=== PATIENT | male | born 1965 | race Caucasian/White ===

== ENCOUNTER 2024-12-30 09:59 | Outpatient (CLI) | payer OTHER, SELFPAY ==
--- NOTE | ~2024-12-30 | CT_ITS ---
CT Scan of the Chest without Contrast: Clinical Indication: Lung cancer screening, nicotine dependence Technique: Contiguous sections were acquired throughout the chest without intravenous contrast. Dose reduction technique was used on this scan by utilizing automated exposure control and iterative recon struction technique. The dose-length product (DLP) was 71.87 mGy-cm. Findings: There is no evidence of any significant mediastinal, hilar or axillary lymphadenopathy. The mediastin al soft tissues appear normal. There is no evidence of pleural or pericardial effusion. There is biapical scarring. There is chronic appearing left upper lobe atelectasis and volume loss wi th bronchiectatic change. 3 mm nodule present in the anterior left midlung (axial image 52). Images through the upper abdomen reveal no abnormalities. Impression: Lung RADS 2: Benign appearance. [address] advised. Chronic appearing left upper lobe atelectasis and volume loss with left upper lobe bronchiectasis. Reviewed, dictated and finalized at [facility]. Impression: Lung RADS 2: Benign appearance. [address] advised. Chronic appearing left upper lobe atelectasis and volume loss with left upper l obe bronchiectasis.
--- OUTSIDE RECORDS SUMMARY | 2024-12-30 11:04 | XMS_ITS | Clinical Summary ---
Author Organization [facility] Address [address] [place] [id number] Care Team Providers Care Pepper Cutter Name Role Phone Ceferino Vasquez MD Primary Care Provider [phone] Allergies No known active allergies Medications lisinopril (PRINIVIL) 20 MG tablet Take 1 tablet (20 mg total) by mouth daily. Active amoxicillin (AMOXIL) 875 MG tablet Take 1 tablet (875 mg total) by mouth 2 (two) times daily. 05/20/2024 Active Social History Tobacco Use Types Packs/Day Years Used Date Smoking Tobacco: Every Day Cigarettes Smokeless Tobacco: Never Alcohol Use Standard Drinks/Week Comments Yes 23.3 (1 standard drink = 0.6 oz pure alcohol) 3 beers yesterday 06/15/24 Sex and Gender Information Value Date Recorded Sex Assigned at Not on file Legal Sex Male 9:03 AM CDT Gender Identity Not on file Sexual Orientation Not on file Last Filed Vital Signs Vital Sign Reading Time Taken Comments Blood Pressure 169/73 06/16/2024 1:13 PM CDT Pulse 93 06/16/2024 2:29 PM CDT Temperature 36.5 C (97.7 F) 06/16/2024 1:13 PM CDT Respiratory Rate 20 06/16/2024 2:29 PM CDT Oxygen Saturation 98% 06/16/2024 2:29 PM CDT Inhaled Oxygen Concentration - - Weight 63.5 kg (140 lb) 06/16/2024 1:13 PM CDT Height 180.3 cm (5' 11 ) 06/16/2024 1:13 PM CDT Body Mass Index 19.53 06/16/2024 1:13 PM CDT Plan of Treatment Health Maintenance Due Date Last Done Comments Colorectal Cancer Screening Colonoscopy (10 Years) 1966 Annual Physical 1969 Pneumococcal Vaccine: Pediat rics (0 to 5 Years) and At-Risk Patients (6 to 64 Years) (1 of 2 - PCV) 1972 Hepatitis C 1984 DTaP, Tdap and Td Vaccines ( 1 - Tdap) 1985 Hepatitis B Vaccines (1 of 3 - 19+ 3-dose series) 1985 Zoster Vaccines (1 of 2) 2016 COVID-19 Vaccine (1 - 2023-2 5 season) 2024 Meningococcal B Vaccine Aged Out No l onger eligible based on patient's age to complete this topic Meningococcal Vaccine Aged Out No kelechi asuncion eligible based on patient's age to complete this topic RSV Immunizations Under 20 Months Aged Out No longer eligible based on patient's age to complete this topic Medical Devices Implanted Type Area Reliability Technicians Device Identifier Shelf Expiration Date Model / Serial / Lot Iol Te [id number] - [id number] Implanted:Qty: 1 on 06/16/2024 by Ryan Ramirez MD at [facility] Lens Left: Eye TE - SURGICAL DIV [id number] 08/22/2027 [id number] / [id number] / Insurance Care Teams Pepper Cutter Relationship Specialty Start Date End Date Ceferino Vasquez MD [address] [place] [address] PCP - General FAMILY PRACTICE 06/13/24
--- OUTSIDE RECORDS SUMMARY | 2024-12-30 11:04 | XMS_ITS | Clinical Summary ---
Author Organization [facility] Address [address] [place] [address] Care Team Providers Care Chute Greaser Name Role Phone Unavailable Primary Care Provider Unavailabl e Encounters Date Type Department Care Team Description 12/03/2024 External Device Data STL ABSTRACTION Provider, Abstract 12/02/2024 External Device Data STL ABSTRACTION Provider, Abstract 11/29/2024 External Device Data STL ABSTRACTION Provider, Abstract 11/28/2024 External Device Data STL ABSTRACTION Provider, Abstract 11/18/2024 External Device Data STL ABSTRACTION Provider, Abstract 10/28/2024 External Device Data STL ABSTRACTION Provider, Abstract 10/16/2024 External Device Data STL ABSTRACTION Provider, Abstract from Last 3 Months Social History Tobacco Use Types Packs/Day Years Used Date Smoking Tobacco: Never Assessed Sex and Gender Information Value Date Recorded Sex Assigned at Not on file Legal Sex Male 9:26 PM CDT Gender Identity Not on file Sexual Orientation Not on file Plan of Treatment Health Maintenance Due Date Last Done Comments DTAP/TDAP/TD VACCINES (1 - Tdap) 1985 HEPATITIS B VACCINES (1 of 3 - 19+ 3-dose series) 1985 COLORECTAL SCREENING 2011 Colorectal Cancer Screening 2011 FIT-DNA Q 3 years 2011 FIT/FOBT Q 1 year 2011 Flex Sig/CT Colonography Q 5 years 2011 ZOSTER VACCINE (1 of 2) 2016 INFLUENZA VACCINE (#1) 2024 PNEUMOCOCCAL VACCINE 0-49 YEARS Aged Out No longer eligible based on patient's age to complete this topic Insurance [employer]
== END 2024-12-30 10:00 | disposition home or self-care (01) ==
PROVIDERS: PCP Registered Nurse; Visit Provider Registered Nurse
DX: Z12.2 Encounter for screening for malignant neoplasm of respiratory organs (principal); Z87.891 Personal history of nicotine dependence; J98.11 Atelectasis; J84.9 Interstitial pulmonary disease, unspecified; J47.9 Bronchiectasis, uncomplicated
CPT/HCPCS: 71271

== ENCOUNTER 2025-06-03 10:16 | Outpatient (CLI) | payer OTHER, SELFPAY ==
--- NOTE | ~2025-06-03 | US_ITS ---
EXAMINATION: US thyroid DATE: 06/03/2025 11:07 INDICATION: Thyroid nodule. TECHNIQUE: Multiple ultrasound images of the thyroid were obtained. COMPARISON: Chest CT 12/30/2024 FINDINGS: The right thyroid lobe measures 4.3 x 1.7 x 1.4 cm. The left thyroid lobe measures 5.0 x 1.4 x 1.3 cm. In the left thyroid lobe, there is a 6 mm predominantly solid, isoechoic, wider than tall nodule with ill-defined margin without echogenic foci (TI-RADS TR3). IMPRESSION: 1. Small thyroid nodule, likely not clinically significant. No follow-up is needed. Reviewed, dictated and finalized at location E. IMPRESSION: 1. Small thyroid nodule, likely not clinically significant. No follow-up is nee ded.
--- OUTSIDE RECORDS SUMMARY | 2025-06-03 11:07 | XMS_ITS | Clinical Summary ---
Author Organization [facility] Address [address] [place] [address] Care Team Providers Care Supervisor Multifocal Lens Name Role Phone Unavailable Primary Care Provider Unavailabl e Social History Tobacco Use Types Packs/Day Years [...] (1 of 3 - 19+ 3-dose series) 05/26 COLORECTAL SCREENING 2011 Colorectal Cancer Screening 2011 FIT-DNA Q 3 years 2011 FIT/FOBT Q 1 year 2011 Flex Sig/CT Colonography Q 5 years 2011 ZOSTER VACCINE (1 of 2) 2016 INFLUENZA VACCINE (#1) 2025 Insurance [employer]
--- OUTSIDE RECORDS SUMMARY | 2025-06-03 11:07 | XMS_ITS | Clinical Summary ---
Author Organization [facility] Address [address] [place] [address] Care Team Providers Care Freight Loader Name Role Phone Ceferino Vasquez MD Primary Care Provider [phone] Allergies No known active allergies Medications lisinopril [...] 1:13 PM CDT Height 180.3 cm (5' 11) 06/16/2024 1:13 PM CDT Body Mass Index 19.53 06/16/2024 1:13 PM CDT Plan of Treatment Health Maintenance Due Date Last Done Comments Colorectal Cancer Screening Colonoscopy (10 Years) 1966 Annual Physical 1969 Hepatitis C 1984 DTaP, Tdap and Td Vaccines ( 1 - Tdap) 1985 Hepatitis B Vaccines (1 of 3 - 19+ 3-dose series) 1985 Pneumococcal Vaccine: 50+ Ye ars (1 of 2 - PCV) 1985 Zoster Vaccines (1 of 2) 2016 COVID-19 Vaccine (1 - 2023-2 5 season) 2025 Meningococcal B Vaccine Aged Out No l onger eligible based on patient's age to complete this topic Meningococcal Vaccine Aged Out No kelechi asuncion eligible based on patient's age to complete this topic RSV Immunizations Under 20 Months Aged Out No longer eligible based on patient's age to complete this topic Medical Devices Implanted Type Area Automobile Dealer Device Identifier Shelf Expiration Date Model / Serial / Lot Iol Te [id number] - [id number] Implanted:Qty: 1 on 06/16/2024 by Ryan Ramirez MD at [facility] Lens Left: Eye TE - SURGICAL DIV [id number] 08/22/2027 CCA0T0 / [id number] / [place] [address] [place] [address] Care Teams Freight Loader Relationship Specialty Start Date End Date Ceferino Vasquez MD [address] [address] PCP - General FAMILY PRACTICE 06/13/24
== END 2025-06-03 10:17 | disposition home or self-care (01) ==
PROVIDERS: PCP Registered Nurse; Visit Provider Nurse Practitioner Family
DX: R22.9 Localized swelling, mass and lump, unspecified (principal)
CPT/HCPCS: 76536

== ENCOUNTER 2025-07-25 15:13 | Observation (INO) | payer OTHER, SELFPAY ==
[2025-07-25] VITALS (17 sets, daily range): BP systolic 79–118; BP diastolic 40–92; PULSE 97–136; RESP 16–28; TEMP 36.4–37.1; O2SAT 95–100; BMI 18.1
--- NOTE | ~2025-07-25 | XR_ITS ---
EXAMINATION: XR chest 1V portable COMPARISON: No comparisons available. HISTORY: vomiting FINDINGS: Nonspecific relatively increased lucency in the left lung compared to the right etiology unclear otherwise the lungs are clear. No pneumothorax. Heart is normal size. Mediastinal and hilar contours are within normal limits. Bony thorax no acute abnormality. Miscellaneous: None Impression: No acute cardiopulmonary abnormality. Reviewed, dictated and finalized at location P. Impression: No acute cardiopulmonary abnormality.
--- NOTE | ~2025-07-25 | CT_ITS ---
Dangelo Mason Mora EXAMINATION: CT abdomen pelvis w con COMPARISON: None HISTORY: right sided AP TECHNIQUE: Axial images were obtained through the abdomen, pelvis post administration of IV contrast. Oral contrast was also administered. Coronal reconstruction images were obtained from the axial views. CT scan performed using dose optimization techniques including the following automated exposure control; adjustment of mA and/or kV; use of iterative reconstruction technique. Automatic exposure control was used to reduce radiation dose. Permanent radiation dose record is archived to PACS. FINDINGS: CT abdomen: LUNG BASES: The lung bases are clear. The visualized portions of the heart and pericardium are unremarkable. LIVER: Portal vein patent. No intrahepatic biliary duct dilatation. SPLEEN: Unremarkable. KIDNEYS: Right Kidney: Unremarkable. No calculi. No hydronephrosis. Left Kidney: Unremarkable. No calculi. No hydronephrosis ADRENAL GLANDS: Unremarkable. PANCREAS: Unremarkable. GALLBLADDER/BILIARY: Cholelithiasis. STOMACH AND ESOPHAGUS: There is thickening of the esophagus which may represent esophagitis. Nonspecific gastric distention. BOWEL/MESENTERY: Nonspecific fluid-filled loops of large bowel. There is mild mucosal hyperemia noted of the large bowel with mild thickening of the large bowel noted most marked involving the transverse and descending colon, there is no perforation or abscess. Appendix normal. Mesentery normal. No thickening or dilated loops of small bowel. ADENOPATHY/RETROPERITONEUM: No lymphadenopathy. AORTA/VASCULATURE: Normal caliber aorta. FREE FLUID OR FREE AIR: No free fluid.. CT pelvis: SOLID ORGANS/REPRODUCTIVE: Unremarkable. BLADDER: Circumferential thickening of the bladder wall noted. OSSEOUS STRUCTURES: No acute osseous abnormality.No suspicious lesions. OVERLYING SOFT TISSUES: Unremarkable. IMPRESSION: Mild colitis probably infectious in nature. No perforation or abscess. Reviewed, dictated and finalized at location P.
[2025-07-25 15:37] LABS: Hematocrit 40.5 % (42.0-52.0); Hemoglobin 13.3 g/dL (14.0-18.0); Immature Granulocyte Percent A 0.5 % (0-0.5); Lymphocytes Absolute Auto 3.64 K/mm3 (0.9-3.2); Mean Corpuscular HGB Conc 32.8 g/dl (32-36); Mean Corpuscular Hemoglobin 33.1 pg (26-34); Mean Corpuscular Volume 100.7 fl (80-100); Nucleated Red Blood Cells Absolute Auto 0.000 K/mm3 (0.0-0.012); Nucleated Red Blood Cells Perc 0.0 % (0.0-0.2); Platelet Count Result 375 k/mm3 (150-375); Red Blood Count 4.02 M/mm3 (4.6-6.20); White Blood Count 19.9 K/mm3 (4.5-10.0)
[2025-07-25 15:51] LABS: Alanine Aminotransferase 25 U/L (6-50); Albumin Level 4.6 g/dL (3.5-5.1); Alkaline Phosphatase 56 U/L (38-126); Anion Gap 19 mmol/L (4-12); Aspartate Amino Transferase 27 U/L (17-59); Bilirubin,Total 0.8 mg/dL (0.2-1.3); Blood Urea Nitrogen 71 mg/dL (9-20); Calcium 9.9 mg/dL (8.4-10.2); Carbon Dioxide 23 mmol/L (22-30); Chloride 97 mmol/L (98-107); Estimated CRCL calculation 45 ml/min; Estimated Glomerular Filt Rate 54; Glucose 167 mg/dL (65-110); Lipase 63 U/L (23-300); Potassium 3.8 mmol/L (3.4-5.0); Sodium 139 mmol/L (137-145); Total Protein 7.5 g/dL (6.3-8.2)
[2025-07-25] MEDS: SODIUM CHLORIDE 0.9% IV 1,000 ML 999 ML IV CONT (16:58)
[2025-07-25] MEDS: SODIUM CHLORIDE 0.9% IV 800 ML 999 ML IV CONT (16:59)
--- NOTE | 2025-07-25 17:33 | ED.GENADULT ---
HPI - General Adult General Chief complaint: Weakness Stated complaint: weakness Time Seen by Provider: 07/25/25 16:32 History of Present Illness HPI narrative: Patient is a 60-year-old male who presents ER with weakness. [facility]. Afterwards he started vomiting black and having black diarrhea. He is not on blood thinning medication. He has not been taking any anti-inflammatory medications. He does have a some abdominal pain and cramping on the right side. Patient has not had any syncope. Denies excessive hemorrhage from extraction. He has been on Augmentin which his PCP prescribed. Related Data Allergies Allergy/AdvReac Type Severity Reaction Status Date / Time No Known Allergies Allergy Verified 07/25/25 16:51 Review of Systems Review of Systems: All systems reviewed & are unremarkable except as noted in HPI and below Constitutional: Constitutional: Reports no additional constitutional complaints ENT: Reports system reviewed and no additional complaints, except as documented Cardiovascular: Cardiovascular: Reports no additional cardiovascular complaints Gastrointestinal: Gastrointestinal: Reports no additional gastrointestinal complaints [facility] Past Medical History Medical History (Updated 07/25/25 @ 19:14 by Micky Turcios MD) Hypertension Exam Narrative: GENERAL: Ill-appearing, well-nourished, and in no acute distress. HEAD: Normocephalic, atraumatic. ENT: Mucous membranes moist. Poor dentition NECK: Supple. CHEST: Clear to auscultation. No respiratory distress. HEART: Tachycardic regular. Normal peripheral pulses. ABDOMEN: Soft, tender palpation right upper and lower quadrant, nondistended. EXTREMITIES: Normal range of motion. No edema. SKIN: Cool, dry, mottled. NEURO: Alert and oriented x3. PSYCH: Normal mood and affect. Course Course Emergency Course: 183: Patient has received 2 L IV fluid and blood pressure is 94/62 with a heart rate of 118. I discussed his lab results and imaging results with him. He is going to be receiving Zosyn IV an additional L of fluid. We can now see some of his veins in the extremities which he cannot see earlier. He still has some mottled perfusion. I have discussed at length central line placement with both him and his brother. The patient does not wish to have a central line. He does not want to lay on his back for the procedure and understands all the steps required to gain successful central venous access does not feel like he can fully participate without a complication occurring. He would like to try supportive care with peripheral IV fluid and antibiotics. He is being started on a Protonix drip. 1857: Dr. Ojeda consulted. Trend hg, agrees with protonix. 1912: Accepted by Dr. Andrews Vital Signs Vital signs: Vital Signs Temperature 98.2 F 07/25/25 15:15 Pulse Rate 105 H 07/25/25 15:15 Respiratory Rate 18 07/25/25 15:15 Blood Pressure 118/92 H 07/25/25 15:15 Pulse Oximetry 98 07/25/25 15:15 Oxygen Delivery Room Air 07/25/25 15:15 Temperature 98.7 F 07/25/25 18:46 Pulse Rate 114 H 07/25/25 18:46 Respiratory Rate 17 07/25/25 18:46 Blood Pressure 96/49 L 07/25/25 18:46 Pulse Oximetry 98 07/25/25 18:46 Oxygen Delivery Room Air 07/25/25 15:15 Medical Decision Making Differential Diagnosis Differential Diagnosis: Upper GI bleed, lower GI bleed, sepsis, perforated viscus Vital Signs Vital Signs: Vital Signs Temperature 98.2 F 07/25/25 15:15 Pulse Rate 105 H 07/25/25 15:15 Respiratory Rate 18 07/25/25 15:15 Blood Pressure 118/92 H 07/25/25 15:15 Pulse Oximetry 98 07/25/25 15:15 Oxygen Delivery Room Air 07/25/25 15:15 Temperature 98.7 F 07/25/25 18:46 Pulse Rate 114 H 07/25/25 18:46 Respiratory Rate 17 07/25/25 18:46 Blood Pressure 96/49 L 07/25/25 18:46 Pulse Oximetry 98 07/25/25 18:46 Oxygen Delivery Room Air 07/25/25 15:15 Lab Data 07/25/25 15:31 07/25/25 15:31 Labs: Lab Results 07/25/25 07/25/25 07/25/25 Range/Units 15:31 17:08 18:21 WBC 19.9 H (4.5-10.0) K/mm3 RBC 4.02 L (4.6-6.20) M/mm3 Hgb 13.3 L (14.0-18.0) g/dL Hct 40.5 L (42.0-52.0) % MCV 100.7 H (80-100) fl MCH 33.1 (26-34) pg MCHC 32.8 (32-36) g/dl RDW 13.5 (11.5-14.5) % Plt Count 375 (150-375) k/mm3 MPV 8.7 (7.4-10.4) fl Immature Gran % (Auto) 0.5 (0-0.5) % Neut % (Auto) 72.3 (45.5-73.1) % Lymph % (Auto) 18.3 (18.3-44.2) % Calloway % (Auto) 8.6 H (2.6-8.5) % Eos % (Auto) 0.1 (0-4.4) % Baso % (Auto) 0.2 (0.2-1.2) % Lymph # (Auto) 3.64 H (0.9-3.2) K/mm3 Calloway # (Auto) 1.7 H (0.1-0.6) K/mm3 Eos # (Auto) 0.0 (0-0.3) K/mm3 Baso # (Auto) 0.0 (0.0-0.1) K/mm3 Abs Immat Gran (auto) 0.09 H (0.00-0.031) K/mm3 Absolute Neuts (auto) 14.4 H (1.3-6.7) K/mm3 Absolute Nucleated RBC 0.000 (0.0-0.012) K/mm3 Nucleated RBC % 0.0 (0.0-0.2) % PT 15.3 H (11.1-14.7) Seconds INR 1.2 APTT 22.6 (22.3-36.8) Seconds Sodium 139 (137-145) mmol/L Potassium 3.8 (3.4-5.0) mmol/L Chloride 97 L (98-107) mmol/L Carbon Dioxide 23 (22-30) mmol/L Anion Gap 19 H (4-12) mmol/L BUN 71 H (9-20) mg/dL Creatinine 1.35 H (0.7-1.3) mg/dL Estim Creat Clear Calc 45 ml/min Estimated GFR 54 L (59 - ) Glucose 167 H (65-110) mg/dL Lactic Acid 5.3 H* (0.7-2.0) mmol/L Calcium 9.9 (8.4-10.2) mg/dL Total Bilirubin 0.8 (0.2-1.3) mg/dL AST 27 (17-59) U/L ALT 25 (6-50) U/L Alkaline Phosphatase 56 (38-126) U/L C-Reactive Protein 0.7 (<1.0) mg/dL Total Protein 7.5 (6.3-8.2) g/dL Albumin 4.6 (3.5-5.1) g/dL Lipase 63 (23-300) U/L Blood Type A Positive Antibody Screen Negative Critical Care Time Critical Care Time Critical Care Time: Yes Total Critical Care Time: 35 Discharge Plan Discharge Clinical Impression: Colitis, Acute upper GI bleed, Sepsis Patient Disposition: Still a Patient Condition: Serious Patient Language: Greenlandic Follow-up/Referrals: PHYSICIAN NOT ON STAFF,NONSTAFF [Primary Care Provider]
--- OUTSIDE RECORDS SUMMARY | 2025-07-25 18:02 | XMS_ITS | Clinical Summary ---
Author Organization [facility] Address [address] [place] [address] Care Team Providers Care Health Physics Technician Name Role Phone Ceferino Vasquez MD Primary Care Provider [phone] Allergies No known active allergies Medications lisinopril [...] Td Vaccines ( 1 - Tdap) 1985 Pneumococcal Vaccine: 50+ Ye ars (1 of 2 - PCV) 1985 Zoster Vaccines (1 of 2) 2016 COVID-19 Vaccine (1 - 2024-2 6 season) 2025 Influenza Adult (#1) 2025 Hepatitis A Vaccines Aged Out No long er eligible based on patient's age to complete this topic Meningococcal B Vaccine Aged Out No l onger eligible based on patient's age to complete this topic Meningococcal Vaccine Aged Out No kelechi asunicon eligible based on patient's age to complete this topic RSV Immunizations Under 20 Months Aged Out No longer eligible based on patient's age to complete this topic Medical Devices Implanted Type Area Psychiatric Social Worker Supervisor Device Identifier Shelf Expiration Date Model / Serial / Lot Iol Te [id number] - [id number] Implanted:Qty: 1 on 06/16/2024 by Ryan Ramirez MD at [facility] Lens Left: Eye TE - SURGICAL DIV [id number] 08/22/2027 [id number] / [id number] / Insurance Care Teams Health Physics Technician Relationship Specialty Start Date End Date Ceferino Vasquez MD [address] [address] PCP - General FAMILY PRACTICE 06/13/24
--- OUTSIDE RECORDS SUMMARY | 2025-07-25 18:02 | XMS_ITS | Clinical Summary ---
Author Organization [facility] Address [address] [place] [address] Care Team Providers Care Security Assurance Analyst Name Role Phone Unavailable Primary Care Provider [...]
[2025-07-25] MEDS: PANTOPRAZOLE SODIUM IV 40 MG VIAL 80 MG IV PUSH (18:42)
[2025-07-25] MEDS: PIPERACILLIN/TAZOBACTAM SOD 3.375 GM in SODIUM CHLORIDE 0.9% IV 50 ML 100 ML IVPB (18:42)
[2025-07-25] MEDS: LACTATED RINGERS 1,000 ML 999 ML IV CONT (18:43)
[2025-07-25] MEDS: PANTOPRAZOLE SODIUM IV 80 MG in SODIUM CHLORIDE 0.9% IV 500 ML 50 MG IV CONT (18:43)
[2025-07-25 18:44] LABS: CRP 0.7 mg/dL (<1.0)
[2025-07-25 18:57] LABS: INR 1.2; Prothrombin Time 15.3 Seconds (11.1-14.7)
[2025-07-25 18:58] LABS: Partial Thromboplastin Time 22.6 Seconds (22.3-36.8)
--- NOTE | 2025-07-25 19:23 | PC.NURSE ---
Report received from JACI Nino and JACI Gastelum. Assumed care of patient at this time.
[2025-07-25] MEDS: VANCOMYCIN 1,500 MG/NS 500 ML 1,500 MG/500 ML BAG 250 MG IVPB (19:52)
--- NOTE | 2025-07-25 19:57 | PC.NURSE ---
Patient used bathroom with standby assist. UA sent to lab.
--- NOTE | 2025-07-25 20:23 | PM.IMHP ---
H&P: HPI History of Present Illness Date/Time: 07/25/25 20:23 Chief Complaint: dark vomitus and diarrhea Narrative: History is taken in collaboration with the patient's brother. Patient has mental developmental delay, does not work, care for by his brother who he lives with. Patient has a history of hypertension, tobacco use disorder, alcohol use disorder, hypertension, marijuana use disorder. Patient has a history of chronic dental infections and rotting teeth. He has had multiple teeth pulled, last visit to the dentist was on 07/23/2025, at multiple teeth in the front upper row taken out, reported there were infected. Patient reports he swallows the infectious material. He drank 10 beers a day until he moved in with his brother 1 year ago and they have since limit him to 2 beers a day. After the dental procedure the patient began to have multiple episodes of black vomitus as well as 3-4 dark stools per day. He has appeared very weak, no oral intake. Reportedly went to his PCP on 07/24/2025 however there was no apparent treatment. Patient may be takes Aleve as well. Drinks 5 cups of coffee a day. Per report from ER physician patient initially in septic/hypovolemic shock as his blood pressure was 82/57 with a heart rate 116. His skin had a mottled appearance. Lactic acid 5.3. Serum creatinine 1.35 with BUN 71, patient and brother denies any known prior history of kidney disease. INR 1.2. White count 36036, hemoglobin 13.3. Blood cultures x2 obtained. Abdomen pelvis CT with contrast demonstrating thickening of esophagus, nonspecific gastric distention, nonspecific fluid-filled loops of large bowel mostly involving the transverse and descending colon, no perforation or abscess. The patient was given vancomycin, Zosyn 3.375 g x 1, 30 cc per kg sodium chloride bolus. Blood pressure improved to 114/64, heart rate downtrending to 104, his mottled appearance resolved. Patient reported feeling much better. Gastroenterology Dr. Ojeda was consulted. Administer Protonix 80 mg IV x1, started on Protonix 8 mg per hour infusion. Started on lactated Ringer's at 125 cc/hour. During the ER course, the patient adamantly refused central line placement for vasopressors. I discussed with the patient again and he once again refused. He reports he has not been able to lie on his back for many years. He also refuses to stop smoking, decrease caffeine intake, decreased marijuana, decrease alcohol intake. Discussion held with his brother in the room, brother reports the patient will be unable to be convinced. Discussed risks versus benefits. Review of Systems Review of Systems: All systems reviewed & are unremarkable except as noted in HPI and below (Subjective) [facility] Past Medical History Medical History (Updated 07/25/25 @ 20:41 by Jeaneth Andrews MD) Acute upper GI bleed Alcohol use disorder Tobacco use disorder Hypertension Meds Home Medications and Allergies Allergies Allergy/AdvReac Type Severity Reaction Status Date / Time No Known Allergies Allergy Verified 07/25/25 16:51 Vital Signs Vital Signs - 24 hr 07/25/25 15:15 07/25/25 16:17 07/25/25 16:31 Temperature 98.2 F Pulse Rate 105 H Respiratory Rate 18 Blood Pressure 118/92 H 79/40 L 86/49 L Pulse Oximetry 98 Oxygen Delivery Room Air 07/25/25 16:49 07/25/25 16:51 07/25/25 18:10 Temperature Pulse Rate 117 H 136 H 123 H Respiratory Rate 17 28 H Blood Pressure 91/46 L 92/47 L Pulse Oximetry 96 99 Oxygen Delivery 07/25/25 18:16 07/25/25 18:32 07/25/25 18:46 Temperature 98.7 F Pulse Rate 116 H 119 H 114 H Respiratory Rate 16 20 17 Blood Pressure 82/57 L 94/62 L 96/49 L Pulse Oximetry 97 98 98 Oxygen Delivery 07/25/25 19:40 Temperature 97.6 F Pulse Rate 115 H Respiratory Rate 17 Blood Pressure 94/64 L Pulse Oximetry 97 Oxygen Delivery Exam Const: General: comfortable and no acute distress Other: A&O x4 HENMT: Other: Rotting teeth, no active purulence, no tenderness to palpation. No lymphadenopathy appreciated Eyes: Pupils: Equal, round and reactive pupils present Neck: Neck: supple Resp: Effort & Inspection: normal respiratory effort Auscultation: clear to auscultation bilaterally Cardio: Rate: regular rate Rhythm: regular rhythm Heart sounds: no murmurs GI: Inspection: non-distended GI Palp: Yes Soft to palpation and No Tenderness to palpation present (GI) Auscultation: normal bowel sounds : General: Yes bladder normal to palpation Neuro: Motor exam (neuro): 5/5 motor strength present throughout Extrem: General: no edema H&P: Results Labs Labs: Short CBC 07/25/25 Range/Units 15:31 WBC 19.9 H (4.5-10.0) K/mm3 Hgb 13.3 L (14.0-18.0) g/dL Hct 40.5 L (42.0-52.0) % Plt Count 375 (150-375) k/mm3 BMP 07/25/25 15:31 Sodium 139 Potassium 3.8 Chloride 97 L Carbon Dioxide 23 BUN 71 H Creatinine 1.35 H Glucose 167 H Calcium 9.9 Liver Function 07/25/25 Range/Units 15:31 Total Bilirubin 0.8 (0.2-1.3) mg/dL AST 27 (17-59) U/L ALT 25 (6-50) U/L Alkaline Phosphatase 56 (38-126) U/L Albumin 4.6 (3.5-5.1) g/dL Assessment and Plan Assessment and plan (1) Hypertension: Code(s): I10 - Essential (primary) hypertension Status: Acute (2) Acute upper GI bleed: Code(s): K92.2 - Gastrointestinal hemorrhage, unspecified Status: Inactive (3) Colitis: Code(s): K52.9 - Noninfective gastroenteritis and colitis, unspecified Status: Acute (4) Sepsis: Code(s): A41.9 - Sepsis, unspecified organism Status: Acute (5) Hypovolemia: Code(s): E86.1 - Hypovolemia Status: Acute (6) Tobacco use disorder: Code(s): F17.200 - Nicotine dependence, unspecified, uncomplicated Status: Inactive (7) Alcohol use disorder: Code(s): F10.90 - Alcohol use, unspecified, uncomplicated Status: Acute (8) Elevated serum creatinine: Code(s): R79.89 - Other specified abnormal findings of blood chemistry Status: Acute Plan History is taken in collaboration with the patient's brother. Patient has mental developmental delay, does not work, care for by his brother who he lives with. Patient has a history of hypertension, tobacco use disorder, alcohol use disorder, hypertension, marijuana use disorder. Patient has a history of chronic dental infections and rotting teeth. He has had multiple teeth pulled, last visit to the dentist was on 07/23/2025, at multiple teeth in the front upper row taken out, reported there were infected. Patient reports he swallows the infectious material. He drank 10 beers a day until he moved in with his brother 1 year ago and they have since limit him to 2 beers a day. After the dental procedure the patient began to have multiple episodes of black vomitus as well as 3-4 dark stools per day. He has appeared very weak, no oral intake. Reportedly went to his PCP on 07/24/2025 however there was no apparent treatment. Patient may be takes Aleve as well. Drinks 5 cups of coffee a day. Per report from ER physician patient initially in septic/hypovolemic shock as his blood pressure was 82/57 with a heart rate 116. His skin had a mottled appearance. Lactic acid 5.3. Serum creatinine 1.35 with BUN 71, patient and brother denies any known prior history of kidney disease. INR 1.2. White count 99195, hemoglobin 13.3. Blood cultures x2 obtained. Abdomen pelvis CT with contrast demonstrating thickening of esophagus, nonspecific gastric distention, nonspecific fluid-filled loops of large bowel mostly involving the transverse and descending colon, no perforation or abscess. The patient was given vancomycin, Zosyn 3.375 g x 1, 30 cc per kg sodium chloride bolus. Blood pressure improved to 114/64, heart rate downtrending to 104, his mottled appearance resolved. Patient reported feeling much better. Gastroenterology Dr. Ojeda was consulted. Administer Protonix 80 mg IV x1, started on Protonix 8 mg per hour infusion. Started on lactated Ringer's at 125 cc/hour. During the ER course, the patient adamantly refused central line placement for vasopressors. I discussed with the patient again and he once again refused. He reports he has not been able to lie on his back for many years. He also refuses to stop smoking, decrease caffeine intake, decreased marijuana, decrease alcohol intake. Discussion held with his brother in the room, brother reports the patient will be unable to be convinced. Discussed risks versus benefits. ----- Patient presents with hypovolemia versus septic shock due to upper GI bleed/colitis/dental infection which could be due to multifactorial reasons including caffeine, tobacco, alcohol use, possibly NSAID use. GI consultation pending. Keep patient NPO. Protonix GTT. Trend lactate. Lactated Ringer's at 125 cc/hour. His hemodynamic status has improved status post fluid in the ER. Blood cultures and urinalysis pending. Patient received Zosyn and vancomycin, considering the possible KARINA will switch the patient to vancomycin cefepime and metronidazole. Trend serum creatinine. Trend leukocytosis, it could be reactive, check procalcitonin in the morning. Patient afebrile. Follow blood cultures closely. Considering the patient's recent dental infection and manipulation will order echocardiogram. Extensive counseling provided as above, patient refused to change any of his lifestyle habits. ----- Patient drinks 2 beers a day, tobacco and marijuana abuse. Drinks 5 coffee per day. Refuses to change any of his lifestyle habits. 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 Full code. SCDs. Protonix GTT, NPO, lactated Ringer infusion. Ambulate with assistance. Greater than 75 minutes spent on [id number] time, medical decision making, chart review and coordination with healthcare team. Hospitalist [facility] Advance Care Plan I have confirmed that the patient's Advanced Care Plan is present, code status is documented, or surrogate decision maker is listed in patient medical record.: Yes Medication Reconciliation I have utilized all available resources to obtain, update and review the patients current medications (includes all prescriptions, OTC, herbals, cannabis, and nutritional supplements).: Yes
--- NOTE | 2025-07-25 20:57 | ADMGEN ---
This patient, Dangelo Mora, was admitted to IMU Room 201-01 on 07/25/25 at 2037. Patient/family oriented to hospital policies and general routines including ID bracelet, bed and alarms, visiting hours, pain management, procedures, bathroom and other care routines, personal items, smoking policy, room service/diet, and visiting hours. Information on how to activate the Rapid Response Team has been discussed. Patient/Family are encouraged to report perceived risks to care and to ask questions if they do not understand what they are told or what they should do.
[2025-07-25 21:24] LABS: Hematocrit 32.1 % (42.0-52.0); Hemoglobin 10.5 g/dL (14.0-18.0)
[2025-07-25] MEDS: metroNIDAZOLE 500 MG/ISO 100ML 500 MG/100 ML BAG 100 MG IVPB (22:25)
[2025-07-25] MEDS: CEFEPIME 1 GM in SODIUM CHLORIDE 0.9% IV 50 ML 100 ML IVPB (22:30)
[2025-07-25] MEDS: LACTATED RINGERS 1,000 ML 125 ML IV CONT (23:56)
[2025-07-26] VITALS (17 sets, daily range): BP systolic 87–129; BP diastolic 44–59; PULSE 78–94; RESP 14–19; TEMP 36.4–36.9; O2SAT 100
[2025-07-26 01:24] LABS: Hematocrit 29.2 % (42.0-52.0); Hemoglobin 9.5 g/dL (14.0-18.0)
--- NOTE | 2025-07-26 01:26 | PC.NURSE ---
Daylight Savings Time For Daylight Savings Time Ending in the Fall - Clocks are moved back. For Daylight Savings Time Beginning in the Spring - Clocks are moved ahead. For [facility], the time of change occurs at 0200 hrs. Time is taken from the bartender server. This entry on the patient's chart recognizes the change in time reflected during documentation. Example: 2 entries for vital signs may be charted for 0200 hrs.
[2025-07-26 02:53] LABS: Add Urine Microscopic? NO; Appearance Urine Clear (Clear); Glucose Urine UA Negative (Negative); Leukocyte Esterase Ur Negative LEU/UL (Negative); Nitrate Urine Negative (Negative); Specific Grav Ur 1.035 (1.001-1.035)
[2025-07-26 05:05] LABS: Hematocrit 26.1 % (42.0-52.0); Hemoglobin 8.7 g/dL (14.0-18.0); Immature Granulocyte Percent A 0.4 % (0-0.5); Lymphocytes Absolute Auto 2.76 K/mm3 (0.9-3.2); Mean Corpuscular HGB Conc 33.3 g/dl (32-36); Mean Corpuscular Hemoglobin 33.1 pg (26-34); Mean Corpuscular Volume 99.2 fl (80-100); Nucleated Red Blood Cells Absolute Auto 0.000 K/mm3 (0.0-0.012); Nucleated Red Blood Cells Perc 0.0 % (0.0-0.2); Platelet Count Result 242 k/mm3 (150-375); Red Blood Count 2.63 M/mm3 (4.6-6.20); White Blood Count 10.4 K/mm3 (4.5-10.0)
[2025-07-26 05:18] LABS: Alanine Aminotransferase 12 U/L (6-50); Albumin Level 3.0 g/dL (3.5-5.1); Alkaline Phosphatase 44 U/L (38-126); Anion Gap 4 mmol/L (4-12); Aspartate Amino Transferase 21 U/L (17-59); Bilirubin,Total 0.5 mg/dL (0.2-1.3); Blood Urea Nitrogen 40 mg/dL (9-20); Calcium 8.4 mg/dL (8.4-10.2); Carbon Dioxide 19 mmol/L (22-30); Chloride 114 mmol/L (98-107); Estimated CRCL calculation 60 ml/min; Estimated Glomerular Filt Rate > 60; Glucose 87 mg/dL (65-110); Magnesium 2.0 mg/dL (1.6-2.3); Potassium 3.8 mmol/L (3.4-5.0); Sodium 137 mmol/L (137-145); Total Protein 5.4 g/dL (6.3-8.2)
[2025-07-26] MEDS: metroNIDAZOLE 500 MG/ISO 100ML 500 MG/100 ML BAG 100 MG IVPB ×3 (05:48→21:36)
[2025-07-26] MEDS: LACTATED RINGERS 1,000 ML 125 ML IV CONT ×2 (05:52→14:10)
[2025-07-26] MEDS: PANTOPRAZOLE SODIUM IV 80 MG in SODIUM CHLORIDE 0.9% IV 500 ML 50 MG IV CONT (05:53)
[2025-07-26 06:30] LABS: Procalcitonin 0.2 ng/mL
--- NOTE | 2025-07-26 07:28 | P.CONGI_ITS ---
Assessment and Plan Assessment and plan (1) Hypovolemia: Code(s): E86.1 - Hypovolemia Status: Acute Assessment and Plan: Patient recovered from previous episode of severe hypotension and tachycardia, possibly sepsis. Drop in H/H is not explained only by volume resuscitation and hemodilution. In the presence of melena and history of possible coffee-ground emesis, and EGDs indicated to rule out stress ulcers from sepsis versus erosive gastritis leading to true upper GI bleeding. Will schedule EGD for tomorrow. In the meantime, will continue monitoring hematocrit every 12 hours and switch pantoprazole from infusion to boluses every 12 hours. GI Consult Note Consult date/time: 07/26/25 07:28 Reason for consult: Black nmnfmc-puvmnr-[id number]-volume depletion HPI: Dangelo Mora is a 60-year-old male with a mental disability and chronic heavy alcohol use who was admitted yesterday for hemodynamic decompensation secondary to a suspected acute gastrointestinal bleed, which was likely exacerbated by recent NSAID use and a history of poor dentition/recent dental extractions. He presented with acute symptoms of melena (3-4 black stools) and dark brown vomiting over 24 hours. On arrival, he was hypotensive (82/75) and tachycardic, with an initial lactic acid level of 5.3 and an admission WBC of 19.9 . He was promptly volume resuscitated and covered empirically with Vancomycin and Zosyn. While the CT scan was non-specific, it did note thickening of the colon at the splenic flexure and left colon. Today's labs demonstrate a significant drop in his Hb from 13.5 on admission to 8.7 although his condition is stabilizing with lactic acid normalizing 0.8 and creatinine improving from 1.35 to 0.98 . Review of Systems 2 Review of Systems: All systems reviewed & are unremarkable except as noted in HPI and below PMFSH Past Medical History Medical History (Updated 07/25/25 @ 20:41 by Jeaneth Andrews MD) Acute upper GI bleed Alcohol use disorder Tobacco use disorder Hypertension Family History Family History Mother Cerebrovascular accident Diabetes mellitus Hypertension Father S/P CABG x 2 CAD (coronary artery disease) Myocardial infarct Hypertension Sibling Hypertension Sibling Unknown family medical history Social History Social History Smoking packs per day: 1 Smoking cigarettes per day: 20.0 Years smoked: 52 Smoking pack-years: 52.00 Smoking status: Current every day smoker Tobacco type: cigarettes and e-cigarettes/vaping Second hand tobacco smoke exposure: No Additional smoking assessment comments: Pt states that he makes his own cigarettes. Alcohol intake: current Drinks per week: 21 Substance use: current Substance use type: former substance user and marijuana Last use: 07/24/25 Lack of Transportation: No Lack of Food: Sometimes True Current Housing: I Have Housing Concerned About Future Housing: No Difficulty Paying Gas/Electric Bills: No Difficulty Paying for Meds: YES Currently Unemployed: No Education: Trade/Vocational Certificate Difficulty w/ Childcare or Family Care: No Spiritual care concerns: No Meds Home Medications and Allergies Home Medications ?Medication ?Instructions ?Recorded ?Confirmed ?Type albuterol sulfate 90 mcg/actuation 1 puff inhalation Q 4-6H PRN 07/25/25 07/25/25 History aerosol inhaler shortness of breath or wheez ing amoxicillin 875 mg tablet 875 mg PO Q12H 07/25/2510/18 History lisinopril 20 mg tablet 20 mg PO DAILY 07/25/2510/18 History Allergies Allergy/AdvReac Type Severity Reaction Status Date / Time poison chaparro extract Allergy Unknown Rash Verified 07/25/25 23:29 Vital Signs Vital Signs - 24 hr 07/25/25 15:15 07/25/25 16:17 07/25/25 16:31 Temperature 98.2 F Pulse Rate 105 H Respiratory Rate 18 Blood Pressure 118/92 H 79/40 L 86/49 L Pulse Oximetry 98 Oxygen Delivery Room Air 07/25/25 16:49 07/25/25 16:51 07/25/25 18:10 Temperature Pulse Rate 117 H 136 H 123 H Respiratory Rate 17 28 H Blood Pressure 91/46 L 92/47 L Pulse Oximetry 96 99 Oxygen Delivery 07/25/25 18:16 07/25/25 18:32 07/25/25 18:46 Temperature 98.7 F Pulse Rate 116 H 119 H 114 H Respiratory Rate 16 20 17 Blood Pressure 82/57 L 94/62 L 96/49 L Pulse Oximetry 97 98 98 Oxygen Delivery 07/25/25 19:40 07/25/25 20:24 07/25/25 20:37 Temperature 97.6 F 97.9 F Pulse Rate 115 H 104 H 106 H Respiratory Rate 17 17 16 Blood Pressure 94/64 L 114/64 113/61 Pulse Oximetry 97 100 96 Oxygen Delivery 07/25/25 20:42 07/25/25 20:45 07/25/25 22:00 Temperature Pulse Rate 110 H 106 H 99 Respiratory Rate 16 Blood Pressure Pulse Oximetry 96 Oxygen Delivery Room Air 07/25/25 23:31 07/25/25 23:52 07/26/25 00:00 Temperature 98.2 F Pulse Rate 97 97 83 Respiratory Rate 16 16 Blood Pressure 94/41 L Pulse Oximetry 95 95 Oxygen Delivery Room Air 07/26/25 01:26 CDT 07/26/25 04:00 07/26/25 04:00 Temperature Pulse Rate 90 84 86 Respiratory Rate 15 Blood Pressure Pulse Oximetry 100 Oxygen Delivery Room Air 07/26/25 04:05 07/26/25 05:22 Temperature 98.0 F Pulse Rate 86 81 Respiratory Rate 15 Blood Pressure 100/47 L Pulse Oximetry 100 Oxygen Delivery Exam 2 Narrative: GENERAL: Ill-appearing, well-nourished, and in no acute distress. HEAD: Normocephalic, atraumatic. ENT: Mucous membranes moist. Poor dentition NECK: Supple. CHEST: Clear to auscultation. No respiratory distress. HEART: Tachycardic regular. Normal peripheral pulses. ABDOMEN: Soft, tender palpation right upper and lower quadrant, nondistended. EXTREMITIES: Normal range of motion. No edema. SKIN: Cool, dry, mottled. NEURO: Alert and oriented x3. PSYCH: Normal mood and affect. 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 WBC 19.9 H (4.5-10.0) K/mm3 Hgb 13.3 L 10.5 L 9.5 L (14.0-18.0) g/dL Hct 40.5 L 32.1 L 29.2 L (42.0-52.0) % Plt Count 375 (150-375) k/mm3 07/26/25 Range/Units 04:39 WBC 10.4 H (4.5-10.0) K/mm3 Hgb 8.7 L (14.0-18.0) g/dL Hct 26.1 L (42.0-52.0) % Plt Count 242 (150-375) k/mm3 BMP 07/25/25 07/26/25 15:31 04:39 Sodium 139 137 Potassium 3.8 3.8 Chloride 97 L 114 H Carbon Dioxide 23 19 L BUN 71 H 40 H D Creatinine 1.35 H 0.98 Glucose 167 H 87 Calcium 9.9 8.4 Liver Function 07/25/25 07/26/25 Range/Units 15:31 04:39 Total Bilirubin 0.8 0.5 (0.2-1.3) mg/dL AST 27 21 (17-59) U/L ALT 25 12 (6-50) U/L Alkaline Phosphatase 56 44 (38-126) U/L Albumin 4.6 3.0 L (3.5-5.1) g/dL Urine 07/25/25 07/26/25 Range/Units 19:53 02:37 Urine Color Cancelled Yellow Urine Appearance Cancelled Clear Urine pH Cancelled 5.5 Ur Specific [place] Cancelled 1.035 Urine Protein Cancelled Negative Urine Glucose (UA) Cancelled Negative
[2025-07-26] MEDS: NICOTINE (*PBKC) 21 MG PATCH 1 PATCH TRANSDERM (09:32)
--- NOTE | 2025-07-26 10:56 | PM.IMPN ---
Progress Note: A&P Assessment and Plan (1) Acute upper GI bleed: Code(s): K92.2 - Gastrointestinal hemorrhage, unspecified Status: Inactive Assessment and Plan: Continue Protonix, ice chips prn, f/u H/H EGD planned for 07/27 (2) Anemia due to acute blood loss: Code(s): D62 - Acute posthemorrhagic anemia Status: Acute Assessment and Plan: Hgb 13.3 07/25 07/26 8.7 w/o signs of active bleeding and after vigorous rehydration, continue to monitor (3) Sepsis: Code(s): A41.9 - Sepsis, unspecified organism Status: Acute Assessment and Plan: Likely related to recent dental extractions with abscesses, likely secondary bacteremia Continue Vanc, Cefepime, Metronidazole Blood C/s pending Echo pending (4) Hypertension: Code(s): I10 - Essential (primary) hypertension Status: Acute Assessment and Plan: Hold lisinopril (5) Colitis: Code(s): K52.9 - Noninfective gastroenteritis and colitis, unspecified Status: Acute Assessment and Plan: Suggested by CT but no prior history of diarrhea or abdominal pain No prior colonoscopy GI to determine appropriateness of inpatient or outpatient colonoscopy (6) Hypovolemia: Code(s): E86.1 - Hypovolemia Status: Acute Assessment and Plan: Resolved (7) Tobacco use disorder: Code(s): F17.200 - Nicotine dependence, unspecified, uncomplicated Status: Inactive Assessment and Plan: 07/26 nicotine patch 21 mg (8) Alcohol use disorder: Code(s): F10.90 - Alcohol use, unspecified, uncomplicated Status: Acute Assessment and Plan: Monitor for s/sx alcohol w/d (9) Elevated serum creatinine: Code(s): R79.89 - Other specified abnormal findings of blood chemistry Status: Acute Assessment and Plan: Due to volume depletion Resolved Subjective Date/time seen: 07/26/25 10:56 Interval history: Mr. Mora was admitted 07/25 and has a history of hypertension, tobacco use disorder, alcohol use disorder, hypertension, marijuana use disorder. He drank 10 beers a day until he moved in with his brother 1 year ago and they have since limit him to 2 beers a day. He recently had multiple teeth pulled, last visit to the dentist was on 07/23/2025. After the dental procedure the patient began to have multiple episodes of black vomitus as well as 3-4 dark stools per day. He was very weak with no oral intake. H went to his PCP on 07/24/2025 but no specific treatment was recalled. He took 2 Advil a few days prior to admission but usually takes Tylenol PRN 07/26 No further melena or coffee ground emesis. But has not had a bowel movement or any vomiting. Denied nausea chest pain abdominal pain dizziness weakness shortness of breath or bleeding today. Review of Systems Review of Systems: All systems reviewed & are unremarkable except as noted in HPI and below Exam Narrative: HEENT: PERRL, sclerae nonicteric, pharyngeal mucosa pink and intact NECK: No JVD, adenopathy, or thyromegaly CHEST: Clear to auscultation. Normal effort HEART: NL S1/S2, regular, no murmur ABDOMEN: BS+, soft, nontender, no mass, no bruits EXTREMITIES: No cyanosis, edema, or clubbing NEUROLOGIC: CN intact and symmetric to inspection MUSCULOSKELETAL: Tone and strength symmetric PSYCH: Alert. Oriented to person, place, and time Objective Data Vital Signs Vital Signs: Vital Signs - 24 hr 07/25/25 15:15 07/25/25 16:17 07/25/25 16:31 Temperature 98.2 F Pulse Rate 105 H Respiratory Rate 18 Blood Pressure 118/92 H 79/40 L 86/49 L Pulse Oximetry 98 Oxygen Delivery Room Air 07/25/25 16:49 07/25/25 16:51 07/25/25 18:10 Temperature Pulse Rate 117 H 136 H 123 H Respiratory Rate 17 28 H Blood Pressure 91/46 L 92/47 L Pulse Oximetry 96 99 Oxygen Delivery 07/25/25 18:16 07/25/25 18:32 07/25/25 18:46 Temperature 98.7 F Pulse Rate 116 H 119 H 114 H Respiratory Rate 16 20 17 Blood Pressure 82/57 L 94/62 L 96/49 L Pulse Oximetry 97 98 98 Oxygen Delivery 07/25/25 19:40 07/25/25 20:24 07/25/25 20:37 Temperature 97.6 F 97.9 F Pulse Rate 115 H 104 H 106 H Respiratory Rate 17 17 16 Blood Pressure 94/64 L 114/64 113/61 Pulse Oximetry 97 100 96 Oxygen Delivery 07/25/25 20:42 07/25/25 20:45 07/25/25 22:00 Temperature Pulse Rate 110 H 106 H 99 Respiratory Rate 16 Blood Pressure Pulse Oximetry 96 Oxygen Delivery Room Air 07/25/25 23:31 07/25/25 23:52 07/26/25 00:00 Temperature 98.2 F Pulse Rate 97 97 83 Respiratory Rate 16 16 Blood Pressure 94/41 L Pulse Oximetry 95 95 Oxygen Delivery Room Air 07/26/25 01:26 CDT 07/26/25 04:00 07/26/25 04:00 Temperature Pulse Rate 90 84 86 Respiratory Rate 15 Blood Pressure Pulse Oximetry 100 Oxygen Delivery Room Air 07/26/25 04:05 07/26/25 05:22 07/26/25 07:55 Temperature 98.0 F 98.4 F Pulse Rate 86 81 94 Respiratory Rate 15 19 Blood Pressure 100/47 L 87/44 L Pulse Oximetry 100 100 Oxygen Delivery 07/26/25 08:00 07/26/25 08:00 07/26/25 08:51 Temperature Pulse Rate 94 Respiratory Rate Blood Pressure 103/47 L Pulse Oximetry Oxygen Delivery Room Air 07/26/25 10:00 Temperature Pulse Rate 91 Respiratory Rate Blood Pressure Pulse Oximetry Oxygen Delivery Intake/Output Intake/Output: Intake & Output 07/23/25 07/24/25 07/25/25 07/26/25 23:59 23:59 23:59 22:59 Intake Total 3500 1659.9 Output Total 600 Balance 3500 1059.9 Meds/Results Medications: Active Medications Generic Name Dose Route Start Last Admin Trade Name Ruq PRN Reason Stop Dose Admin Acetaminophen 650 mg 07/25/25 19:08 Acetaminophen 325 Mg Tablet PO Q4H PRN Mild Pain (1-3) or Fever Hydrocodone Bitart/Acetaminophen 1 tab 07/25/25 19:08 Hydrocodone/Acetaminophen (*Crx) 5-325 Mg Tablet PO Q4H PRN Pain Rated 4-6 Lactated Ringer's 1,000 mls @ 125 mls/hr 07/25/25 19:10 07/26/25 05:52 Lr - Lactated Ringers Iv IV CONT 125 mls/hr .Q8H BERNARDINO Administration Cefepime HCl 1 gm/ Sodium 50 mls @ 100 mls/hr 07/25/25 21:00 07/25/25 23:00 Chloride IVPB Infused Q24H BERNARDINO Infusion Metronidazole 500 mg in 100 mls @ 100 mls/hr 07/25/25 22:00 07/26/25 06:48 Flagyl 500 Mg/Iso Soln 100 Ml IVPB Infused Q8HR BERNARDINO Infusion Vancomycin HCl 1,250 mg in 250 mls @ 166.667 mls/hr 07/26/25 14:00 Vancomycin 1,250 Mg/Ns 250 Ml IVPB Q18H BERNARDINO Nicotine 1 patch 07/26/25 09:20 07/26/25 09:32 Nicotine (*Ernie) 21 Mg Patch TRANSDERM 1 patch DAILY BERNARDINO Administration Ondansetron HCl 4 mg 07/25/25 19:08 Ondansetron Inj 4 Mg/2 Ml Vial IV PUSH Q4H PRN Nausea Pantoprazole Sodium 40 mg 07/26/25 21:00 Pantoprazole Sodium Iv 40 Mg Vial IV PUSH Q12HR [facility] Perflutren Lipid Microsphere 0 ml 07/25/25 20:36 Perflutren Lipid Microspheres 1.5 Ml Vial Diluted To 10 Ml Total Volume IV PUSH 07/28/25 20:36 ONCE PRN adequate visualization Protocol Radiology Results: ITS Impressions Chest X-Ray 07/25/25 17:51 Impression: No acute cardiopulmonary abnormality. Abdomen/Pelvis CT 07/25/25 18:00 IMPRESSION: Mild colitis probably infectious in nature. No perforation or abscess. Labs Labs: Laboratory Results - last 24 hr 07/25/25 07/25/25 07/25/25 15:31 17:08 18:21 WBC 19.9 H RBC 4.02 L Hgb 13.3 L Hct 40.5 L MCV 100.7 H MCH 33.1 MCHC 32.8 RDW 13.5 Plt Count 375 MPV 8.7 Immature Gran % (Auto) 0.5 Neut % (Auto) 72.3 Lymph % (Auto) 18.3 Duval % (Auto) 8.6 H Eos % (Auto) 0.1 Baso % (Auto) 0.2 Lymph # (Auto) 3.64 H [place] # (Auto) 1.7 H Eos # (Auto) 0.0 Baso # (Auto) 0.0 Abs Immat Gran (auto) 0.09 H Absolute Neuts (auto) 14.4 H Absolute Nucleated RBC 0.000 Nucleated RBC % 0.0 PT 15.3 H INR 1.2 APTT 22.6 Sodium 139 Potassium 3.8 Chloride 97 L Carbon Dioxide 23 Anion Gap 19 H BUN 71 H Creatinine 1.35 H Estim Creat Clear Calc 45 Estimated GFR 54 L Glucose 167 H Lactic Acid 5.3 H* Calcium 9.9 Magnesium Total Bilirubin 0.8 AST 27 ALT 25 Alkaline Phosphatase 56 C-Reactive Protein 0.7 Total Protein 7.5 Albumin 4.6 Lipase 63 Procalcitonin Urine Color Urine Appearance Urine pH Ur Specific Mil[place] Urine Protein Urine Glucose (UA) Urine Ketones Ur Blood (Man) Urine Nitrate Urine Bilirubin Urine Urobilinogen Add Ur Microanalysis Leukocyte Esterase Rfl Urine RBC Urine WBC Urine WBC Clumps Ur Squamous Epith Cells Ur Transition Epith Cell Ur Renal Epithelial Cell Meir Biurate Crystals Calcium Carbonate Cryst Calcium Phosphate Cryst Calcium Oxalate Crystal Leucine Crystals Cystine Crystals Uric Acid Crystals Triple Phos Crystals Sulfonamide Crystals Cholesterol Crystals Talc Crystals Tyrosine Crystals Hippuric Acid Crystals Bilirubin Crystals Other Crystals Amorphous Sediment Other Sediment Urine Bacteria Urine Casts Cellular Casts Epithelial Casts Fatty Casts Hyaline Casts Granular Casts Waxy Casts Broad Casts RBC Casts WBC Casts Urine Starch Urine Mucus Urine Trichomonas Urine Yeast (Budding) Ur Oval Fat Bodies Sperm Presence Blood Type A Positive Antibody Screen Negative 07/25/25 07/25/25 07/26/25 19:53 20:52 01:14 [employer] WBC RBC Hgb 10.5 L 9.5 L Hct 32.1 L 29.2 L MCV MCH MCHC RDW Plt Count MPV Immature Gran % (Auto) Neut % (Auto) Lymph % (Auto) Duval % (Auto) Eos % (Auto) Baso % (Auto) Lymph # (Auto) [place] # (Auto) Eos # (Auto) Baso # (Auto) Abs Immat Gran (auto) Absolute Neuts (auto) Absolute Nucleated RBC Nucleated RBC % PT INR APTT Sodium Potassium Chloride Carbon Dioxide Anion Gap BUN Creatinine Estim Creat Clear Calc Estimated GFR Glucose Lactic Acid 1.8 Calcium Magnesium Total Bilirubin AST ALT Alkaline Phosphatase C-Reactive Protein Total Protein Albumin Lipase Procalcitonin Urine Color Cancelled Urine Appearance Cancelled Urine pH Cancelled Ur Specific Milroy Cancelled Urine Protein Cancelled Urine Glucose (UA) Cancelled Urine Ketones Cancelled Ur Blood (Man) Cancelled Urine Nitrate Cancelled Urine Bilirubin Cancelled Urine Urobilinogen Cancelled Add Ur Microanalysis Cancelled Leukocyte Esterase Rfl Cancelled Urine RBC Cancelled Urine WBC Cancelled Urine WBC Clumps Cancelled Ur Squamous Epith Cells Cancelled Ur Transition Epith Cell Cancelled Ur Renal Epithelial Cell Cancelled [place] Biurate Crystals Cancelled Calcium Carbonate Cryst Cancelled Calcium Phosphate Cryst Cancelled Calcium Oxalate Crystal Cancelled Leucine Crystals Cancelled Cystine Crystals Cancelled Uric Acid Crystals Cancelled Triple Phos Crystals Cancelled Sulfonamide Crystals Cancelled Cholesterol Crystals Cancelled Talc Crystals Cancelled Tyrosine Crystals Cancelled Hippuric Acid Crystals Cancelled Bilirubin Crystals Cancelled Other Crystals Cancelled Amorphous Sediment Cancelled Other Sediment Cancelled Urine Bacteria Cancelled Urine Casts Cancelled Cellular Casts Cancelled Epithelial Casts Cancelled Fatty Casts Cancelled Hyaline Casts Cancelled Granular Casts Cancelled Waxy Casts Cancelled Broad Casts Cancelled RBC Casts Cancelled WBC Casts Cancelled Urine Starch Cancelled Urine Mucus Cancelled Urine Trichomonas Cancelled Urine Yeast (Budding) Cancelled Ur Oval Fat Bodies Cancelled Sperm Presence Cancelled Blood Type Antibody Screen 07/26/25 07/26/25 02:37 04:39 WBC 10.4 H RBC 2.63 L Hgb 8.7 L Hct 26.1 L MCV 99.2 MCH 33.1 MCHC 33.3 RDW 13.7 Plt Count 242 MPV 8.7 Immature Gran % (Auto) 0.4 Neut % (Auto) 61.6 Lymph % (Auto) 26.6 Du[place] % (Auto) 10.6 H Eos % (Auto) 0.5 Baso % (Auto) 0.3 Lymph # (Auto) 2.76 [place] # (Auto) 1.1 H Eos # (Auto) 0.1 Baso # (Auto) 0.0 Abs Immat Gran (auto) 0.04 H Absolute Neuts (auto) 6.4 Absolute Nucleated RBC 0.000 Nucleated RBC % 0.0 PT INR APTT Sodium 137 Potassium 3.8 Chloride 114 H Carbon Dioxide 19 L Anion Gap 4 BUN 40 H D Creatinine 0.98 Estim Creat Clear Calc 60 Estimated GFR > 60 Glucose 87 Lactic Acid 0.8 Calcium 8.4 Magnesium 2.0 Total Bilirubin 0.5 AST 21 ALT 12 Alkaline Phosphatase 44 C-Reactive Protein Total Protein 5.4 L Albumin 3.0 L Lipase Procalcitonin 0.2 Urine Color Yellow Urine Appearance Clear Urine pH 5.5 Ur Specific Milroy 1.035 Urine Protein Negative Urine Glucose (UA) Negative Urine Ketones Negative Ur Blood (Man) Negative Urine Nitrate Negative Urine Bilirubin Negative Urine Urobilinogen 0.2 Add Ur Microanalysis Leukocyte Esterase Rfl Negative Urine RBC Urine WBC Urine WBC Clumps Ur Squamous Epith Cells Ur Transition Epith Cell Ur Renal Epithelial Cell Meir Biurate Crystals Calcium Carbonate Cryst Calcium Phosphate Cryst Calcium Oxalate Crystal Leucine Crystals Cystine Crystals Uric Acid Crystals Triple Phos Crystals Sulfonamide Crystals Cholesterol Crystals Talc Crystals Tyrosine Crystals Hippuric Acid Crystals Bilirubin Crystals Other Crystals Amorphous Sediment Other Sediment Urine Bacteria Urine Casts Cellular Casts Epithelial Casts Fatty Casts Hyaline Casts Granular Casts Waxy Casts Broad Casts RBC Casts WBC Casts Urine Starch Urine Mucus Urine Trichomonas Urine Yeast (Budding) Ur Oval Fat Bodies Sperm Presence Blood Type Antibody Screen
[2025-07-26] MEDS: VANCOMYCIN 1,250 MG/NS 250 ML 1,250 MG/250 ML BAG 166.67 MG IVPB (14:03)
[2025-07-26 18:10] LABS: Hematocrit 24.6 % (42.0-52.0); Hemoglobin 8.4 g/dL (14.0-18.0)
[2025-07-26] MEDS: CEFEPIME 1 GM in SODIUM CHLORIDE 0.9% IV 50 ML 100 ML IVPB (20:05)
[2025-07-26] MEDS: PANTOPRAZOLE SODIUM IV 40 MG VIAL IV PUSH (20:08)
[2025-07-27] VITALS (12 sets, daily range): BP systolic 106–144; BP diastolic 45–65; PULSE 73–101; RESP 12–21; TEMP 36.4–37; O2SAT 98–100
--- NOTE | 2025-07-27 | ECHO_ITS ---
Patient Info Name: Dangelo Mora Age: 60 years : 1965 Gender: Male Ht: 71 in Wt: 131 lbs BSA: 1.71 m2 HR: 80 bpm BP: 123 / 64 mmHg Heart Rhythm: Sinus Rhythm Technical Quality: Good Exam Date: 07/27/2025 7:45 AM Patient Status: I Admit Date: 07/25/2025 Exam Type: CA echo doppler color flow Complete two-dimensional, color flow and Doppler transthoracic echocardiogram is performed. Staff Referring Physician: Micky Turcios MD Computing Services Director: La Estrada Attending Provider: Jeaneth Andrews Summary 1. Complete two-dimensional, color flow and Doppler transthoracic echocardiogram is performed. 2. Left ventricular chamber dimension is normal. 3. Left ventricular systolic function is normal, estimated at 60-65. 4. The left ventricular diastolic function is grade II diastolic dysfunction. 5. E/e' 9 is minimally elevated. 6. Left atrial chamber dimension is mildly enlarged. 7. No pulmonary hypertension, estimated pulmonary arterial systolic pressure is 15 mmHg. Left Ventricle E/e' 9 is minimally elevated. Left ventricular chamber dimension is normal. Left ventricular systolic function is normal, estimated at 60-65. The left ventricular diastolic function is grade II diastolic dysfunction. Right Ventricle Right ventricular chamber dimension is normal. Right ventricular systolic function is normal and with normal TAPSE 2.1 cm. Left Atria Left atrial chamber dimension is mildly enlarged. Right Atria Right atrial chamber dimension is normal. Aortic Valve The aortic valve is trileaflet. There is no aortic valve stenosis. There is no aortic valve regurgitation. No aortic valve vegetation visualized. Pulmonic Valve There is no pulmonic regurgitation. No pulmonic valve vegetation visualized. Mitral Valve There is no mitral valve stenosis. There is no mitral valve regurgitation. No mitral valve vegetation visualized. Tricuspid Valve There is no tricuspid valve regurgitation. No pulmonary hypertension, estimated pulmonary arterial systolic pressure is 15 mmHg. No tricuspid valve vegetation visualized. Pericardium/Pleural There is no pericardial effusion. Inferior Vena Cava Normal inferior vena cava with >50% collapse upon inspiration consistent with normal right atrial pressure, 5 mmHg. Aorta The aortic root size at the sinus of Valsalva is normal. Left Ventricular Outflow Tract Name Value Normal LVOT 2D LVOT Diameter 2.0 cm LVOT Doppler LVOT Peak Velocity 104 cm/s LVOT Peak Gradient 4 mmHg LVOT Mean Gradient 2 mmHg LVOT VTI 21 cm LVOT VTI/AV VTI Ratio 0.8 LVOT Stroke Volume 64 ml LVOT CO 5.1 l/min LVOT CI 3.0 l/min/m2 Pulmonic Valve Name Value Normal RVOT Doppler RVOT Peak Velocity 72 cm/s RVOT Peak Gradient 2 mmHg PV Doppler PV Peak Velocity 99 cm/s PV Peak Gradient 4 mmHg Mitral Valve Name Value Normal MV Diastolic Function MV E Peak Velocity 88 cm/s MV A Peak Velocity 52 cm/s MV E/A 1.7 MV Decel Time (PW) 148 ms MV Annular TDI MV E/e' (Septal) 8.8 MV E/e' (Lateral) 9.7 MV E/e' (Average) 9.2 Tricuspid Valve Name Value Normal TV Regurgitation Doppler TR Peak Velocity 160 cm/s TR Peak Gradient 10 mmHg Estimated PAP/RSVP RA Pressure 5 mmHg <=5 PA Systolic Pressure 15 mmHg <36 RV Systolic Pressure 15 mmHg <36 TV Annular TDI TV Lateral Fanny s' Velocity 16.6 cm/s >=9.5 Aorta Name Value Normal Ascending Aorta Ao Root Diameter (MM) 3.4 cm Ao Root Diam Index (MM) 2.0 cm/m2 Aortic Valve Name Value Normal AV Doppler AV Peak Velocity 145 cm/s AV Peak Gradient 8 mmHg AV Mean Gradient 4 mmHg AV VTI 26 cm AV Area (Cont Eq VTI) 2.4 cm2 >=3.0 AV Area (Cont Eq Jewel) 2.3 cm2 AV DI (Jewel) 0.72 AV Regurgitation 2D LVOT Area 3.1 cm2 Ventricles Name Value Normal LV Dimensions 2D/MM IVS Diastolic Thickness (2D) 0.9 cm 0.6-1.0 LVID Diastole (2D) 4.3 cm 4.2-5.8 LVIW Diastolic Thickness (2D) 0.9 cm 0.6-1.0 LVID Systole (2D) 2.6 cm 2.5-4.0 LVOT Diameter 2.0 cm LV Mass (2D Cubed) 128.09 g 88.00-224.00 LV Mass Index (2D Cubed) 75 g/m2 49-115 Relative Wall Thickness (2D) 0.43 <=0.42 LV Fractional Shortening/Ejection Fraction 2D/MM LV Fractional Shortening (2D) 39 % 25-43 LV EF (2D Teichholz) 70 % LV Diastolic Volume (4C MOD) 67 ml LV EF (4C MOD) 72 % LV Diastolic Volume (2C MOD) 59 ml LV EF (2C MOD) 76 % LV Diastolic Volume (BP MOD) 64 ml 62-150 LV Diastolic Volume Index (BP MOD) 38 ml/m2 34-74 LV Systolic Volume (BP MOD) 16 ml 21-61 LV Systolic Volume Index (BP MOD) 9 ml/m2 11-31 LV EF (BP MOD) 75 % 52-72 LV Diastolic Length (4C) 7.5 cm LV Systolic Length (4C) 6.1 cm LV Stroke Volume (4C MOD) 49 ml Atria Name Value Normal LA Dimensions LA Dimension (MM) 3.5 cm 3.0-4.0 LA Volume (4C A-L) 48 ml LA Volume (BP A-L) 55 ml RA Dimensions RA Area (4C) 17.4 cm2 <=18.0 Report Signatures
[2025-07-27] MEDS: LACTATED RINGERS 1,000 ML 125 ML IV CONT ×2 (00:13→09:00)
[2025-07-27] MEDS: metroNIDAZOLE 500 MG/ISO 100ML 500 MG/100 ML BAG 100 MG IVPB ×2 (05:50→14:55)
[2025-07-27 07:02] LABS: Hematocrit 28.4 % (42.0-52.0); Hemoglobin 9.3 g/dL (14.0-18.0); Mean Corpuscular HGB Conc 32.7 g/dl (32-36); Mean Corpuscular Hemoglobin 33.0 pg (26-34); Mean Corpuscular Volume 100.7 fl (80-100); Platelet Count Result 212 k/mm3 (150-375); Red Blood Count 2.82 M/mm3 (4.6-6.20); White Blood Count 10.5 K/mm3 (4.5-10.0)
[2025-07-27 07:23] LABS: Estimated CRCL calculation 79 ml/min; Estimated Glomerular Filt Rate > 60
[2025-07-27] MEDS: VANCOMYCIN 1,500 MG/NS 500 ML 1,500 MG/500 ML BAG 250 MG IVPB (09:00)
[2025-07-27] MEDS: PANTOPRAZOLE SODIUM IV 40 MG VIAL IV PUSH (09:00)
[2025-07-27] MEDS: NICOTINE (*PBKC) 21 MG PATCH 1 PATCH TRANSDERM (09:00)
[2025-07-27] MEDS: LACTATED RINGERS 1,000 ML 150 ML IV CONT (11:12)
--- NOTE | 2025-07-27 11:42 | WPDANESEPPF ---
Anes - Initial Pre Proc Eval Procedure: Operation Date: 07/27/25 14:30 Proposed Procedures p Esophagogastroduodenoscopy - Carlos Law MD Date/Time: 07/27/25 11:42 Surgeon: Jeaneth Andrews MD Pre Op Diagnosis: sepsis, colitis, upper gi bleeding Patient Data Age: 60 Gender: M Height: 1.8 m Weight: 63.2 kg Last Vital Signs Temp 36.7 C 07/27/25 11:08 Pulse 101 H 07/27/25 11:08 Resp 18 07/27/25 11:08 BP 132/62 07/27/25 11:08 Pulse Ox 100 07/27/25 11:08 O2 Del Method Room Air 07/27/25 11:08 Allergies Allergy/AdvReac Type Severity Reaction Status Date / Time poison chaparro extract Allergy Unknown Rash Verified 07/27/25 11:03 Home Medications ?Medication ?Instructions ?Recorded ?Confirmed ?Type albuterol sulfate 90 mcg/actuation 1 puff inhalation Q4-6H PRN 07/25/25 07/25/25 History aerosol inhaler shortness of breath or wheezing amoxicillin 875 mg tablet 875 mg PO Q12H 07/25/25 07/25/25 History lisinopril 20 mg tablet 20 mg PO DAILY 07/25/25 07/25/25 History Laboratory Tests 07/26/25 07/27/25 17:55 06:53 WBC 10.5 H K/mm3 (4.5-10.0) RBC 2.82 L M/mm3 (4.6-6.20) Hgb 8.4 L g/dL 9.3 L g/dL (14.0-18.0) (14.0-18.0) Hct 24.6 L % 28.4 L % (42.0-52.0) (42.0-52.0) MCV 100.7 H fl (80-100) MCH 33.0 pg (26-34) MCHC 32.7 g/dl (32-36) RDW 13.7 % (11.5-14.5) Plt Count 212 k/mm3 (150-375) MPV 8.0 fl (7.4-10.4) Creatinine 0.78 mg/dL (0.7-1.3) Estim Creat Clear Calc 79 ml/min Estimated GFR > 60 (59 - ) Vancomycin Trough 8.5 L ug/mL (10.0-20.0) Patient hx anesthesia problems: none Family hx anesthesia problems: none Results Review: All pre-operative results and documents have been reviewed as part of the pre-operative evaluation. [facility] Past Medical History Medical History Acute upper GI bleed Alcohol use disorder Tobacco use disorder Hypertension Family History Family History Mother Cerebrovascular accident Diabetes mellitus Hypertension Father S/P CABG x 2 CAD (coronary artery disease) Myocardial infarct Hypertension Sibling Hypertension Sibling Unknown family medical history Social History Social History Smoking packs per day: 1 Smoking cigarettes per day: 20.0 Years smoked: 52 Smoking pack-years: 52.00 Smoking status: Current every day smoker Tobacco type: cigarettes and e-cigarettes/vaping Second hand tobacco smoke exposure: No Additional smoking assessment comments: Pt states that he makes his own cigarettes. Alcohol intake: current Drinks per week: 21 Substance use: current Substance use type: former substance user and marijuana Last use: 07/24/25 Lack of Transportation: No Lack of Food: Sometimes True Current Housing: I Have Housing Concerned About Future Housing: No Difficulty Paying Gas/Electric Bills: No Difficulty Paying for Meds: YES Currently Unemployed: No Education: Trade/Vocational Certificate Difficulty w/ Childcare or Family Care: No Spiritual care concerns: No Anes - Eval Final PreProcedure Day of Procedure 07/27/25 11:42 Patient weight: thin Heart: regular rate and rhythm Lungs: decreased breath sounds Airway: Mallampati scale class II and special considerations (recent dental work) poor dentition Neurological: alert and oriented Last oral intake: >/= 8 hours ASA classification: III Emergent: no Anesthetic plan: proceed Anesthesia type and monitoring: general GIVS and standard monitoring Results Review: All pre-operative results and documents have been reviewed as part of the pre-operative evaluation. Informed Consent: The patient's anesthetic plan and its attendant risks and benefits were discussed with the patient/family/POA. Questions were solicited and answers provided to the satisfaction of the patient/family/POA.
[2025-07-27] MEDS: BENZOCAINE (*SP) 60 ML SPRAY CAN (HURRICAINE) 1 SPRAY MUCOUS MEM (11:46)
--- NOTE | 2025-07-27 11:51 | S_PTH ---
PATIENT: Dangelo Mora LOC: ANHIMU #:[id number] AGE/SX: 60/M ROOM: 201 RE07/25/[address]: Juliet Mcwilliams MD : 1965 BED: 01 DIS: 07/27/2025 SPEC #: [id number] RECD: 07/27/25 12:40 STATUS: [place] REQ #: [id number] SIMON: 07/27/25 11:[address]: Carlos Law DEPT: [facility] Surgical RECD BY: Sujatha Noriega ENTERED: 07/27/25 12:40 SP TYPE: Surgical OTHR DR: MD Ceferino Naylor MD Tissues: A - Gastric Biopsy Procedures: Hematoxylin and Eosin Stain Gross and Microscopic Level 4
--- NOTE | 2025-07-27 14:51 | WPDGIPROGNO ---
Progress Note: A&P Assessment and Plan (1) Daysi-Diallo tear: Code(s): K22.6 - Gastro-esophageal laceration-hemorrhage syndrome Status: Acute Assessment and Plan: the patient had an acute GI bleeding secondary to Daysi-Diallo tear, frequent finding in persons with alcohol abuse. Fortunately, these lesions do not rebleed therefore, the patient can have regular diet and continue on pantoprazole 40 mg once a day for 2 more weeks. More importantly, he is encouraged to quit drinking and smoking. Will sign off for the moment, please feel free to have the patient follow-up with us as an outpatient. Subjective Date/time seen: 07/27/25 14:51 Interval history: See EGD report. Patient did not have further vomiting or melena. Daysi-Diallo tear is the explanation for melena and drop in hematocrit. Exam Narrative: Unchanged from previous. Objective Data Vital Signs Vital Signs: Vital Signs - 24 hr 07/26/25 15:47 07/26/25 16:00 07/26/25 16:00 Temperature 97.6 F Pulse Rate 89 82 Respiratory Rate 19 Blood Pressure 129/57 L Pulse Oximetry 100 Oxygen Delivery Room Air 07/26/25 18:00 07/26/25 19:45 07/26/25 20:00 Temperature 98.5 F Pulse Rate 91 78 Respiratory Rate 14 Blood Pressure 121/59 L Pulse Oximetry 100 Oxygen Delivery Room Air 07/26/25 20:00 07/26/25 22:00 07/27/25 00:00 Temperature 98.6 F Pulse Rate 85 85 81 Respiratory Rate 14 Blood Pressure 115/59 L Pulse Oximetry 100 Oxygen Delivery 07/27/25 00:00 07/27/25 00:00 07/27/25 02:00 Temperature Pulse Rate 73 80 Respiratory Rate Blood Pressure Pulse Oximetry Oxygen Delivery Room Air 07/27/25 04:00 07/27/25 04:00 07/27/25 04:00 Temperature 97.6 F Pulse Rate 82 80 Respiratory Rate 12 Blood Pressure 123/64 Pulse Oximetry 100 Oxygen Delivery Room Air 07/27/25 06:00 07/27/25 08:00 07/27/25 11:08 Temperature 98.3 F 98.0 F Pulse Rate 85 80 101 H Respiratory Rate 16 18 Blood Pressure 127/55 L 132/62 Pulse Oximetry 100 100 Oxygen Delivery Room Air 07/27/25 11:57 07/27/25 12:07 07/27/25 12:17 Temperature Pulse Rate 80 78 87 Respiratory Rate 15 21 H 20 Blood Pressure 106/45 L 115/48 L 127/61 Pulse Oximetry 100 100 100 Oxygen Delivery Room Air Room Air Room Air Intake/Output Intake/Output: Intake & Output 07/24/25 07/25/25 07/26/25 07/27/25 23:59 23:59 22:59 23:59 Intake Total 3500 4159.9 1200 Output Total 2350 325 Balance 3500 1809.9 875 Meds/Results Medications: Active Medications Generic Name Dose Route Start Last Admin Trade Name Freq PRN Reason Stop Dose Admin Acetaminophen 650 mg 07/25/25 19:08 Acetaminophen 325 Mg Tablet PO Q4H PRN Mild Pain (1-3) or Fever Hydrocodone Bitart/Acetaminophen 1 tab 07/25/25 19:08 Hydrocodone/Acetaminophen (*Crx) 5-325 Mg Tablet PO Q4H PRN Pain Rated 4-6 Albuterol 1 puff 07/26/25 11:13 Albuterol Sulfate (*Sp) Aerosol 1 Puff INHALATION Q4-6H PRN Shortness Of Breath Or Wheezing Lactated Ringer's 1,000 mls @ 125 mls/hr 07/25/25 19:10 07/27/25 09:00 Lr - Lactated Ringers Iv IV CONT 125 mls/hr .Q8H BERNARDINO Administration Cefepime HCl 1 gm/ Sodium 50 mls @ 100 mls/hr 07/25/25 21:00 07/26/25 20:35 Chloride IVPB Infused Q24H BERNARDINO Infusion Metronidazole 500 mg in 100 mls @ 100 mls/hr 07/25/25 22:00 07/27/25 05:50 Flagyl 500 Mg/Iso Soln 100 Ml IVPB 100 mls/hr Q8HR BERNARDINO Administration Vancomycin HCl 1,500 mg in 500 mls @ 250 mls/hr 07/27/25 09:00 07/27/25 09:00 Vancomycin 1,500 Mg/Ns 500 Ml IVPB 250 mls/hr Q12H BERNARDINO Administration Nicotine 1 patch 07/26/25 09:20 07/27/25 09:00 Nicotine (*Pbkc) 21 Mg Patch TRANSDERM 1 patch DAILY BERNARDINO Administration Ondansetron HCl 4 mg 07/25/25 19:08 Ondansetron Inj 4 Mg/2 Ml Vial IV PUSH Q4H PRN Nausea Pantoprazole Sodium 40 mg 07/27/25 21:00 Pantoprazole 40 Mg Tablet PO Q12HR BERNARDINO Perflutren Lipid Microsphere 0 ml 07/25/25 20:36 Perflutren Lipid Microspheres 1.5 Ml Vial Diluted To 10 Ml Total Volume IV PUSH 07/28/25 20:36 ONCE PRN adequate visualization Protocol Radiology Results: ITS Impressions Chest X-Ray 07/25/25 17:51 Impression: No acute cardiopulmonary abnormality. Abdomen/Pelvis CT 07/25/25 18:00 IMPRESSION: Mild colitis probably infectious in nature. No perforation or abscess. Labs Labs: Laboratory Results - last 24 hr 07/26/25 07/27/25 17:55 06:53 WBC 10.5 H RBC 2.82 L Hgb 8.4 L 9.3 L Hct 24.6 L 28.4 L MCV 100.7 H MCH 33.0 MCHC 32.7 RDW 13.7 Plt Count 212 MPV 8.0 Creatinine 0.78 Estim Creat Clear Calc 79 Estimated GFR > 60 Vancomycin Trough 8.5 L
--- NOTE | 2025-07-27 15:42 | P.DS_ITS ---
DS: Admitting Diagnosis Discharge Date 07/27/2025 Admitting Diagnosis dark vomitus and diarrhea DS: Discharge Diagnosis Discharge Diagnosis (1) Sepsis: Code(s): A41.9 - Sepsis, unspecified organism Status: Acute (2) Colitis: Code(s): K52.9 - Noninfective gastroenteritis and colitis, unspecified Status: Acute (3) Daysi-Diallo tear: Code(s): K22.6 - Gastro-esophageal laceration-hemorrhage syndrome Status: Acute DS: Summary Hospital Course Hospital Course: Reason for Admission Acute upper gastrointestinal bleeding with hemodynamic instability (hypotension, tachycardia), melena, and coffee-ground emesis, in the setting of recent dental extractions, chronic alcohol and tobacco use, and NSAID exposure. Hospital Course Presentation: * Presented with acute onset of melena (3?4 black stools), dark brown vomiting, and profound weakness following recent dental extractions for infected teeth. * History notable for chronic heavy alcohol use, tobacco use, hypertension, and developmental delay. * On arrival: hypotensive (BP 82/57), tachycardic (HR 116?136), lactic acidosis (lactate 5.3), leukocytosis (WBC 19.9), acute kidney injury (Cr 1.35, BUN 71) now resolved, and initial Hgb 13.3. * Admitted for management of presumed upper GI bleed, hypovolemic/septic shock, and possible sepsis from dental source. Resuscitation and Initial Management: * Aggressive IV fluid resuscitation (sodium chloride bolus, lactated Ringer?s). * Empiric broad-spectrum antibiotics (vancomycin, piperacillin-tazobactam, later transitioned to vancomycin, cefepime, and metronidazole). * Pantoprazole 80 mg IV bolus, then continuous infusion. * NPO, SCDs for DVT prophylaxis. * Refused central line placement for vasopressors. GI Evaluation: * EGD performed 07/27/25: * Findings:?Daysi-Diallo tear at the GE junction (not actively bleeding), mild gastritis (erythematous, edematous, no active bleeding), normal duodenum. * Biopsies:?Taken from stomach. * Conclusion:?Daysi-Diallo tear was the source of GI bleeding; no ongoing hemorrhage at time of endoscopy. Clinical Course: * Hemodynamic status improved with fluids; lactic acid normalized (0.8), creatinine improved (0.98). * Hgb dropped from 13.3 to 8.7, likely due to acute blood loss and hemodilution. * No further episodes of melena or coffee-ground emesis after admission. * No evidence of ongoing GI bleeding. * No new fevers; blood cultures pending at discharge. * Colitis noted on CT (thickening at splenic flexure/left colon), but no diarrhea or abdominal pain during admission. * Monitored for alcohol withdrawal; no significant symptoms observed. * Nicotine patch initiated for tobacco use disorder. * KARINA resolved Pertinent Labs and Imaging * CBC:?WBC 19.9, Hgb 13.3 ? 8.7, Plt 375 * BMP:?Na 139, K 3.8, Cl 97, CO2 23, BUN 71, Cr 1.35 ? 0.98, Glu 167 * Liver Function:?Total bili 0.8, AST 27, ALT 25, Alk Phos 56, Albumin 4.6 * Lactic Acid:?5.3 ? 0.8 * CT Abdomen/Pelvis:?Esophageal thickening, nonspecific gastric distention, fluid-filled loops of large bowel (transverse/descending colon), no pe rforation/abscess. * EGD:?Daysi-Diallo tear (not bleeding), mild gastritis, normal duodenum. Hospital Medications * Pantoprazole?80 mg IV x1, then 8 mg/hr infusion, transitioned to 40 mg PO daily * Vancomycin, Cefepime, Metronidazole?(antibiotics) * Lactated Ringer?s?IV fluids * Nicotine patch?21 mg * Albuterol?inhaler PRN * Lisinopril?held during admission Discharge Medications * Pantoprazole?40 mg PO daily x2 weeks * Levaquin adn Flagyl x 10 days * Albuterol?inhaler PRN * Lisinopril?20 mg PO daily (resume if BP stable and renal function normal) * Nicotine patch?as needed for smoking cessation * Other home medications?as appropriate Discharge Instructions * Diet:?Regular diet as tolerated. * Activity:?As tolerated; ambulate with assistance if needed. * GI: * Continue pantoprazole 40 mg daily for 2 weeks. * Monitor for recurrence of melena, hematemesis, or abdominal pain. * Alcohol/Tobacco: * Strongly encouraged to abstain from alcohol and tobacco. * Referral to addiction counseling as outpatient. * Follow-up: * Primary care within 1 week. * Gastroenterology follow-up for biopsy results and further management. * Close dental follow up * Outpatient labs: CBC, renal function in 1 week. * When to Seek Care: * Return for any recurrent vomiting of blood, black stools, severe abdominal pain, chest pain, shortness of breath, or signs of infection (fever, chills). Condition at Discharge * Hemodynamically stable, afebrile, no ongoing GI bleeding, tolerating oral intake, at cognitive baseline. Time Spent with Patient Time attestation: Total time spent providing and/or coordinating discharge services: DS: Data Data Completed and Pending Pending studies at discharge: Pending at discharge 07/27/25 11:51 Surgical [PTH] Routine Labs on day of discharge: Labs from last 24 hours 07/27/25 07/26/25 06:53 17:55 WBC 10.5 H RBC 2.82 L Hgb 9.3 L 8.4 L Hct 28.4 L 24.6 L MCV 100.7 H MCH 33.0 MCHC 32.7 RDW 13.7 Plt Count 212 MPV 8.0 Creatinine 0.78 Estim Creat Clear Calc 79 Estimated GFR > 60 Vancomycin Trough 8.5 L Preliminary micro results at discharge 07/25/25 18:21 Blood Culture - Preliminary Blood 07/25/25 17:08 Blood Culture - Preliminary Blood Discharge Plan Discharge Attending physician on discharge: Juliet Mcwilliams Discharging Clinician: Juliet Mcwilliams Anticipated Discharge Date/Time: 07/27/25 15:26 Patient Disposition: Home Activity: as tolerated Diet: as tolerated and regular Discharge Instructions: COntineu Levaquin along with Augmentin you were already prescribed Call your dentist office for follow up Patient Instructions: Antibiotic Form, How to Stop Smoking (ED), Gastrointestinal Bleeding (DC), Sepsis (DC), Colitis (ED), Electronic Cigarettes and Your Health (ED) Patient Language: Tamazight Stand Alone Forms: General Discharge Information Follow-up/Referrals: Ceferino Vasquez MD [Primary Care Provider, Family Practice] Referral Note: F/u with PCP in 3-5 days Duglas Ojeda MD [Physician, Gastroenterology] Referral Note: F/u with GI as instructed Discharge Medications: New levofloxacin 750 mg tablet 750 mg PO DAILY 10 Days Qty: 10 0RF metronidazole 500 mg tablet 500 mg PO Q8H 10 Days Qty: 30 0RF pantoprazole [Protonix] 40 mg tablet,delayed release (DR/EC) 40 mg PO HS 14 Days Qty: 14 0RF Continued albuterol sulfate 90 mcg/actuation HFA aerosol inhaler 1 puff INHALATION Q4-6H PRN (Reason: shortness of breath or wheezing) amoxicillin 875 mg tablet 875 mg PO Q12H lisinopril 20 mg tablet 20 mg PO DAILY Date of admission: 07/25/25 19:09 Primary Care Provider: Ceferino Vasquez Admitting Provider: Jeaneth Andrews Attending physician on admission: Jeaneth Andrews Condition: Serious
--- NOTE | 2025-07-27 15:42 | PM.DS ---
DS: Admitting Diagnosis Discharge Date 07/27/2025 Admitting Diagnosis dark vomitus and diarrhea DS: Discharge Diagnosis Discharge Diagnosis (1) Sepsis: Code(s): A41.9 - Sepsis, unspecified organism Status: Acute (2) Colitis: Code(s): K52.9 - Noninfective gastroenteritis and colitis, unspecified Status: Acute (3) Daysi-Diallo tear: Code(s): K22.6 - Gastro-esophageal laceration-hemorrhage syndrome Status: Acute DS: Summary Hospital Course Hospital Course: Reason for Admission Acute upper gastrointestinal bleeding with hemodynamic instability (hypotension, tachycardia), melena, and coffee-ground emesis, in the setting of recent dental extractions, chronic alcohol and tobacco use, and NSAID exposure. Hospital Course Presentation: Presented with acute onset of melena (3?4 black stools), dark brown vomiting, and profound weakness following recent dental extractions for infected teeth. History notable for chronic heavy alcohol use, tobacco use, hypertension, and developmental delay. On arrival: hypotensive (BP 82/57), tachycardic (HR 116?136), lactic acidosis (lactate 5.3), leukocytosis (WBC 19.9), acute kidney injury (Cr 1.35, BUN 71) now resolved, and initial Hgb 13.3. Admitted for management of presumed upper GI bleed, hypovolemic/septic shock, and possible sepsis from dental source. Resuscitation and Initial Management: Aggressive IV fluid resuscitation (sodium chloride bolus, lactated Ringer?s). Empiric broad-spectrum antibiotics (vancomycin, piperacillin-tazobactam, later transitioned to vancomycin, cefepime, and metronidazole). Pantoprazole 80 mg IV bolus, then continuous infusion. NPO, SCDs for DVT prophylaxis. Refused central line placement for vasopressors. GI Evaluation: EGD performed 07/27/25: Findings:?Daysi-Diallo tear at the GE junction (not actively bleeding), mild gastritis (erythematous, edematous, no active bleeding), normal duodenum. Biopsies:?Taken from stomach. Conclusion:?Daysi-Diallo tear was the source of GI bleeding; no ongoing hemorrhage at time of endoscopy. Clinical Course: Hemodynamic status improved with fluids; lactic acid normalized (0.8), creatinine improved (0.98). Hgb dropped from 13.3 to 8.7, likely due to acute blood loss and hemodilution. No further episodes of melena or coffee-ground emesis after admission. No evidence of ongoing GI bleeding. No new fevers; blood cultures pending at discharge. Colitis noted on CT (thickening at splenic flexure/left colon), but no diarrhea or abdominal pain during admission. Monitored for alcohol withdrawal; no significant symptoms observed. Nicotine patch initiated for tobacco use disorder. KARINA resolved Pertinent Labs and Imaging CBC:?WBC 19.9, Hgb 13.3 ? 8.7, Plt 375 BMP:?Na 139, K 3.8, Cl 97, CO2 23, BUN 71, Cr 1.35 ? 0.98, Glu 167 Liver Function:?Total bili 0.8, AST 27, ALT 25, Alk Phos 56, Albumin 4.6 Lactic Acid:?5.3 ? 0.8 CT Abdomen/Pelvis:?Esophageal thickening, nonspecific gastric distention, fluid-filled loops of large bowel (transverse/descending colon), no perforation/abscess. EGD:?Daysi-Diallo tear (not bleeding), mild gastritis, normal duodenum. Hospital Medications Pantoprazole?80 mg IV x1, then 8 mg/hr infusion, transitioned to 40 mg PO daily Vancomycin, Cefepime, Metronidazole?(antibiotics) Lactated Ringer?s?IV fluids Nicotine patch?21 mg Albuterol?inhaler PRN Lisinopril?held during admission Discharge Medications Pantoprazole?40 mg PO daily x2 weeks Levaquin adn Flagyl x 10 days Albuterol?inhaler PRN Lisinopril?20 mg PO daily (resume if BP stable and renal function normal) Nicotine patch?as needed for smoking cessation Other home medications?as appropriate Discharge Instructions Diet:?Regular diet as tolerated. Activity:?As tolerated; ambulate with assistance if needed. GI: Continue pantoprazole 40 mg daily for 2 weeks. Monitor for recurrence of melena, hematemesis, or abdominal pain. Alcohol/Tobacco: Strongly encouraged to abstain from alcohol and tobacco. Referral to addiction counseling as outpatient. Follow-up: Primary care within 1 week. Gastroenterology follow-up for biopsy results and further management. Close dental follow up Outpatient labs: CBC, renal function in 1 week. When to Seek Care: Return for any recurrent vomiting of blood, black stools, severe abdominal pain, chest pain, shortness of breath, or signs of infection (fever, chills). Condition at Discharge Hemodynamically stable, afebrile, no ongoing GI bleeding, tolerating oral intake, at cognitive baseline. Time Spent with Patient Time attestation: Total time spent providing and/or coordinating discharge services: DS: Data Data Completed and Pending Pending studies at discharge: Pending at discharge 07/27/25 11:51 Surgical [PTH] Routine Labs on day of discharge: Labs from last 24 hours 07/27/25 07/26/25 06:53 17:55 WBC 10.5 H RBC 2.82 L Hgb 9.3 L 8.4 L Hct 28.4 L 24.6 L MCV 100.7 H MCH 33.0 MCHC 32.7 RDW 13.7 Plt Count 212 MPV 8.0 Creatinine 0.78 Estim Creat Clear Calc 79 Estimated GFR > 60 Vancomycin Trough 8.5 L Preliminary micro results at discharge 07/25/25 18:21 Blood Culture - Preliminary Blood 07/25/25 17:08 Blood Culture - Preliminary Blood Discharge Plan Discharge Attending physician on discharge: Juliet Mcwilliams Discharging Clinician: Juliet Mcwilliams Anticipated Discharge Date/Time: 07/27/25 15:26 Patient Disposition: Home Activity: as tolerated Diet: as tolerated and regular Discharge Instructions: COntineu Levaquin along with Augmentin you were already prescribed Call your dentist office for follow up Patient Instructions: Antibiotic Form, How to Stop Smoking (ED), Gastrointestinal Bleeding (DC), Sepsis (DC), Colitis (ED), Electronic Cigarettes and Your Health (ED) Patient Language: Irish Stand Alone Forms: General Discharge Information Follow-up/Referrals: Ceferino Vasquez MD [Primary Care Provider, Family Practice] Referral Note: F/u with PCP in 3-5 days Duglas Ojeda MD [Physician, Gastroenterology] Referral Note: F/u with GI as instructed Discharge Medications: New levofloxacin 750 mg tablet 750 mg PO DAILY 10 Days Qty: 10 0RF metronidazole 500 mg tablet 500 mg PO Q8H 10 Days Qty: 30 0RF pantoprazole [Protonix] 40 mg tablet,delayed release (DR/EC) 40 mg PO HS 14 Days Qty: 14 0RF Continued albuterol sulfate 90 mcg/actuation HFA aerosol inhaler 1 puff INHALATION Q4-6H PRN (Reason: shortness of breath or wheezing) amoxicillin 875 mg tablet 875 mg PO Q12H lisinopril 20 mg tablet 20 mg PO DAILY Date of admission: 07/25/25 19:09 Primary Care Provider: Ceferino Vasquez Admitting Provider: Jeaneth Andrews Attending physician on admission: Jeaneth Andrews Condition: Serious
== END 2025-07-27 16:42 | disposition home or self-care (01) ==
LOC: ANHED 18:59 → ANHIMU 21:46
PROVIDERS: Internal Medicine; Internal Medicine Gastroenterology; Admitting Provider General Practice; Emergency Provider Emergency Medicine; PCP Family Medicine; Visit Provider Internal Medicine
PROC: 0DJ08ZZ Inspection of Upper Intestinal Tract, Via Natural or Artificial Opening Endoscopic (ICD-10-PCS; CPT 43239; principal; 2025-07-27 14:30)
DX: K22.6 Gastro-esophageal laceration-hemorrhage syndrome (principal); K52.9 Noninfective gastroenteritis and colitis, unspecified; K92.1 Melena; D62 Acute posthemorrhagic anemia; A41.9 Sepsis, unspecified organism; I10 Essential (primary) hypertension; E86.1 Hypovolemia; R79.89 Other specified abnormal findings of blood chemistry; K08.9 Disorder of teeth and supporting structures, unspecified; F17.200 Nicotine dependence, unspecified, uncomplicated; F10.90 Alcohol use, unspecified, uncomplicated; F79 Unspecified intellectual disabilities; Z82.3 Family history of stroke; Z83.3 Family history of diabetes mellitus; Z82.49 Family history of ischemic heart disease and other diseases of the circulatory system
CPT/HCPCS: 43239; 36415; 71045; 74177; 80053; 80202; 81003; 82565; 83605; 83690; 83735; 84145; 85014; 85018; 85025; 85027; 85610; 85730; 86140; 86850; 86900; 86901; 87040; 88305; 93306; 96361; 96365; 96375; 99285; A9270; G0378; J0692; J1836; J2003; J2470; J2543; J2704; J3373; J7030; J7040; J7120; Q9967